=== PATIENT | male | born 1955 | race African-American/Black ===

== ENCOUNTER 2023-02-17 21:55 | Emergency (ER) | payer OTHER, MEDICAID ==
[~2023-02-17] VITALS: Ht 180.3 cm; Wt 93.2 kg
[2023-02-17 22:45] VITALS: O2SAT 99
[2023-02-18] MEDS ORDERED: ACETAMINOPHEN 325MG TABLET PO ONE (01:15)
[2023-02-18] MEDS ORDERED: LORAZEPAM 1MG TABLET PO ONE (01:15)
[2023-02-18] MEDS ORDERED: ACET-2708 MT (01:36)
[2023-02-18] MEDS ORDERED: CYCL10TA21 MT (01:36)
[2023-02-18 02:19] VITALS: BP 139/69; PULSE 99; RESP 14; TEMP 98.1
== END 2023-02-18 02:21 | disposition home or self-care (01) ==
LOC: ER 21:55
DX: M54.2 Cervicalgia (principal); I10 Essential (primary) hypertension; I48.91 Unspecified atrial fibrillation
CPT/HCPCS: 99283